=== PATIENT | female | born 1990 | race Caucasian/White ===

== ENCOUNTER → 2021-12-17 16:29 | Outpatient (CLI) | payer OTHER, SELFPAY ==
[2021-12-17 17:23] LABS: Influenza A - CEPHEID Flu A NEGATIVE (NEGATIVE); Influenza B - CEPHEID Flu B NEGATIVE (NEGATIVE); Respiratory Syncytial Virus POSITIVE (Negative)
[2021-12-17 17:56] LABS: COVID-19 CEPHEID PCR (VTM/NP) Negative (Negative)
== END ==
PROVIDERS: Visit Provider Nurse Practitioner Family
DX: R05.9 Cough, unspecified (principal)
CPT/HCPCS: 0241U